=== PATIENT | male | born 1950 | race Caucasian/White ===

== ENCOUNTER → 2016-10-22 | Outpatient (CLI) | payer OTHER ==
--- NOTE | 2016-10-22 19:42 | DX ---
Left Knee, 3 Views HISTORY: Pain, osteoarthritis. FINDINGS: Mild patellofemoral joint space narrowing. No significant tibiofemoral joint space narrowin g. No significant osteophytes. No evidence of joint effusion. IMPRESSION: 1. Mild patellofemoral joint space narrowing. 2. No significant degenerative changes of the tibiofemoral compartment.
== END ==
LOC: BRMIMAGING 13:14
PROVIDERS: ATTEND Family Medicine
DX: M25.562 Pain in left knee (principal)
CPT/HCPCS: 73560-PO

== ENCOUNTER → 2017-04-01 | Outpatient (CLI) | payer OTHER | LOC: BRMIMAGING 14:03 | PROVIDERS: ATTEND Family Medicine | DX: M16.11 Unilateral primary osteoarthritis, right hip (principal) | CPT/HCPCS: 73521-PO ==

== ENCOUNTER → 2018-03-15 | Outpatient (CLI) | payer OTHER | LOC: BRMIMAGING 10:32 | PROVIDERS: ATTEND Physician Assistant | DX: S92.342A Displaced fracture of fourth metatarsal bone, left foot, initial encounter for closed fracture (principal) | CPT/HCPCS: 73630-PO ==